=== PATIENT | male | born 1980 | race American Indian/Alaskan Native ===

== ENCOUNTER 2017-01-21 03:46 | Emergency (ER) | payer SELFPAY | END 2017-01-21 04:04 | disposition left against medical advice (07) | LOC: ED 03:46 | DX: Z53.21 Procedure and treatment not carried out due to patient leaving prior to being seen by health care provider (principal) ==

== ENCOUNTER 2017-01-22 16:12 | Emergency (ER) | payer OTHER ==
[2017-01-22 16:21] VITALS: BP 131/85
[2017-01-22 17:27] LABS: Bilirubin,Urine NEG (Negative); Blood,Urine NEG (Negative); Ketones,Urine NEG (Negative); Leukocyte Esterase,Urine SM (Negative); Mucus,Urine FEW /HPF; Nitrite,Urine NEG (Negative); Protein,Urine <15 mg/dL mg/dL (Negative); Urobilinogen,Urine < 2.0 mg/dL (<2.0)
[2017-01-22] MEDS ORDERED: XYLOCAINE 1% MPF 5 mL INFILTRATI ONE (17:43)
[2017-01-22] MEDS ORDERED: TYLENOL PO ONE (17:43)
[2017-01-22] MEDS ORDERED: ROCEPHIN IM ONE (17:43)
[2017-01-22] MEDS ORDERED: ZITHROMAX PO ONE (17:43)
[2017-01-22] MEDS ORDERED: FLAGYL PO ONE (17:43)
--- NOTE | 2017-01-22 17:49 | Emergency Department Report ---
HPI - General Chief Complaint: Urogenital-Male Time Seen by Provider: 01/22/17 17:42 - HPI HPI: The patient is a 36-year-old male who presents for evaluation of penile pain. The patient reports mild pain to the head of the penis for the past one week, 2/ 10 in severity, burning in quality, exacerbated with urination. The patient reports associated discharge from the penis. He admits to unprotected sexual intercourse within the past one month. The patient denies fever, trauma to the abdomen, pelvis, genitalia, testicular pain or swelling, blood in the stool, dark tarry stool, dysuria, hematuria, flank pain, genital discharge, inability to pass flatus. ED Past Medical Hx - Past Medical History Previous Medical History?: No - Surgical History Past Surgical History?: No - Social History Smoking Status: Never Smoker Substance Use Type: None - Medications Home Medications: Home Medications Medication Instructions Recorded Confirmed Last Taken Type Acetaminophen/Codeine [Tylenol 1 tab PO Q6H PRN #10 tab 01/22/17 Unknown Rx /Codeine # 3 tab] Cephalexin [Keflex] 500 mg PO TID #15 capsule 01/22/17 Unknown Rx metroNIDAZOLE [Flagyl] 500 mg PO BID #14 tab 01/22/17 Unknown Rx ED Review of Systems ROS: Stated complaint: UTI,POSSIBLE STD Other details as noted in HPI Constitutional: denies: fever ENT: denies: throat or neck pain Respiratory: denies: cough, shortness of breath Cardiovascular: denies: chest pain Endocrine: denies unexplained weight loss or gain Gastrointestinal: denies: abdominal pain, nausea Genitourinary: reports dysuria Musculoskeletal: denies: leg swelling Skin: denies: rash Neurological: denies: headache Hematological/Lymphatic: denies: easy bleeding or easy bruising Psych: denies sadness or hopelessness Physical Exam - Physical Exam Vital Signs: Vital Signs 01/22/17 16:18 Temperature 98.6 F Pulse Rate 68 Respiratory 16 Rate Blood Pressure 131/85 O2 Sat by Pulse 100 Oximetry Physical Exam: General: well-nourished, well-developed, no acute distress Head: Normocephalic, atraumatic Eyes: normal sclera ENT: Mucous membranes are pink and moist Neck: trachea midline, neck supple, No neck stiffness, no cervical adenopathy Respiratory: Breath sounds equal bilaterally, no wheezing, rales, or rhonchi Cardio: S1 and S2 present, no murmurs, rubs, gallops, capillary refill is brisk Abdomen: Normoactive bowel sounds, soft abdomen, no rigidity, no guarding or rebound tenderness : unremarkable, no testicular tenderness or swelling, no open lesions, ulcers , vesicles Musc: No pitting edema Skin: No rash Neuro: no facial drooping, normal speech Psych: Normal affect ED Course Vital Signs 01/22/17 16:18 Temperature 98.6 F Pulse Rate 68 Respiratory 16 Rate Blood Pressure 131/85 O2 Sat by Pulse 100 Oximetry ED Medical Decision Making - Medical Decision Making The patient was seen and examined by myself. The patient is placed on a tile setter apprentice and continuous pulse ox. On initial evaluation, the patient was found to be in no distress. Evaluation orders were placed. Urinalysis results revealed elevated urine WBC of 29, and positive leukocyte esterase, consistent with urinary tract infection. Patient given IM Rocephin, by mouth Zithromax, and by mouth Flagyl for treatment of urethritis and urinary tract infection. The patient was reevaluated and reported that their symptoms were markedly improved. The patient is stable for discharge with outpatient follow-up. The patient is given follow-up and return instructions. The patient expressed understanding and agreed with the plan. The patient is discharged in stable condition with prescription for Keflex for treatment of UTI. Critical care attestation.: If time is entered above; I have spent that time in minutes in the direct care of this critically ill patient, excluding procedure time. ED Disposition Clinical Impression: Urethritis, nonspecific, Acute UTI (urinary tract infection) Disposition: DISCHARGED TO HOME OR SELFCARE Is pt being admited?: No Does the pt Need Aspirin: No Condition: Stable Instructions: Nonspecific Urethritis in Men (ED), Urinary Tract Infection in Men (ED) Prescriptions: Acetaminophen/Codeine [Tylenol /Codeine # 3 tab] 1 tab PO Q6H PRN #10 tab PRN Reason: Pain Cephalexin [Keflex] 500 mg PO TID #15 capsule metroNIDAZOLE [Flagyl] 500 mg PO BID #14 tab Referrals: PRIMARY CARE, [Primary Care Provider] - 3-5 Days Forms: STI Treatment and Prevention Time of Disposition: 18:33
== END 2017-01-22 18:54 | disposition home or self-care (01) ==
LOC: ED 16:12
DX: N39.0 Urinary tract infection, site not specified (principal); N34.2 Other urethritis
CPT/HCPCS: 81001; 96372; 99283; J0696

== ENCOUNTER 2018-06-16 12:14 | Emergency (ER) | payer OTHER ==
[2018-06-16 12:23] VITALS: BP 121/77
== END 2018-06-16 18:46 ==
LOC: ED 12:14
DX: H92.01 Otalgia, right ear (principal); Z53.21 Procedure and treatment not carried out due to patient leaving prior to being seen by health care provider